=== PATIENT | female | born 1975 | race Caucasian/White ===

== ENCOUNTER 2017-09-15 19:08 | Inpatient (IN) | payer MEDICAID ==
[~2017-09-15] VITALS: Ht 157.5 cm; Wt 146.5 kg
[2017-09-15 19:13] VITALS: BP 134/87
--- NOTE | 2017-09-15 19:13 | NUR ---
42 Y/O F BIBA W/C/O R LOWER ABD PAIN, N/V THAT STARTED 45 MINUTES AGO. MED HX BELLSPALSY. ER MADE AWARE.
[2017-09-15] MEDS ORDERED: NACL 0.9% 1,000 ML IV ONE (19:47)
[2017-09-15] MEDS ORDERED: MORPHINE SULFATE 4 MG/ML SYR IVP ONE (19:50)
[2017-09-15] MEDS ORDERED: ONDANSETRON 4 MG/2 ML VIAL IVP ONE (19:50)
--- NOTE | 2017-09-15 20:09 | NUR ---
PT RESTING IN BED ON CRADIAC MONITOR, NO S/S OF DISTRESS NOTED. FAMILY AT BEDSIDE.
[2017-09-15] MEDS ORDERED: fentaNYL 0.05 MG/ML VIAL IVP ONE (20:10)
[2017-09-15 20:31] LABS: BASOPHILS # (AUTO) 0.1 K/uL (0.00-0.22); BASOPHILS % (AUTO) 0.7 % (0.0-2.0); EOSINOPHILS # (AUTO) 0.1 K/uL (0-0.4); EOSINOPHILS % (AUTO) 1.6 % (0.0-4.0); HEMATOCRIT 29.2 % (36-48); HEMOGLOBIN 8.8 g/dL (12.0-16.0); LYMPHOCYTES % (AUTO) 22.6 % (20.5-51.1); MEAN CORPUSCULAR HEMOGLOBIN 19 pg (27-31); MEAN CORPUSCULAR HGB CONC 30 g/dL (33-37); MEAN CORPUSCULAR VOLUME 61.9 fL (80-94); MONOCYTES # (AUTO) 0.6 K/uL (0.8-1.0); MONOCYTES % (AUTO) 7.1 % (1.7-9.3); NEUTROPHILS # (AUTO) 5.9 K/uL (1.8-7.7); PLATELET COUNT (AUTO) 383 K/uL (140-450); RED BLOOD CELL COUNT(AUTO) 4.71 MIL/uL (4.20-5.40); RED CELL DISTRIBUTION WIDTH 19.5 % (11.6-13.7); WHITE BLOOD COUNT (AUTO) 8.7 K/uL (4.8-10.8)
[2017-09-15 20:47] LABS: ANION GAP 9.7 (8-16); CREATININE 0.8 mg/dL (0.6-1.3); POTASSIUM 4.7 mmol/L (3.5-5.1)
[2017-09-15 20:53] LABS: ALBUMIN 3.1 g/dL (3.4-5.0); TOTAL BILIRUBIN 0.2 mg/dL (0.0-1.0)
[2017-09-15 21:18] LABS: APPEARANCE,URINE CLOUDY (CLEAR); BILIRUBIN,URINE NEGATIVE (NEGATIVE); BLOOD, URINE 3+ (NEGATIVE); COLOR,URINE YELLOW (YELLOW); LEUKOCYTE ESTERASE ,URINE 1+ (NEGATIVE); NITRITE, URINE NEGATIVE (NEGATIVE); PH,URINE 7.5 (5.0-9.0); UGLUCOSE 2+ (NEGATIVE)
--- NOTE | 2017-09-15 21:31 | NUR ---
PT RESTING IN BED, STATES PAIN HAS IMPROVED, AWATING FOR CT. WILL CONT TO MONITOR.
[2017-09-15 21:34] LABS: RBC,URINE TOO NUMEROUS TO COUN /HPF (0-5)
[2017-09-15 21:35] LABS: WBC,URINE 16-25 (MOD) /HPF (0-5)
--- NOTE | 2017-09-15 21:37 | NUR ---
PT TAKEN FOR CT
--- NOTE | 2017-09-15 21:54 | NUR ---
PT BACK FROM CT SCAN.
--- NOTE | 2017-09-15 23:22 | NUR ---
PT RESTING IN BED, VSS. NO S/S OF DISTRESS NOTED AT THE MOMENT.
[2017-09-16] MEDS ORDERED: cefTRIAXone 1,000 MG VIAL ONE (00:03)
[2017-09-16] MEDS ORDERED: NACL 0.9% 2,000 ML IV ONE (00:20)
--- NOTE | 2017-09-16 00:21 | NUR ---
UNABLE TO INSERT NG TUBE. ATTEMPTED X3 BUT PT STATES SHE CANT DO IT. PT REFUSED TO CONTINUE. ER MADE AWARE.
[2017-09-16] MEDS: NACL 0.9% 1,000 ML IV SCH ×4 (00:38→20:38)
[2017-09-16] MEDS ORDERED: MORPHINE SULFATE 4 MG/ML SYR IVP PRN (00:40)
[2017-09-16] MEDS ORDERED: ONDANSETRON 4 MG/2 ML VIAL IM/IVP PRN (00:40)
[2017-09-16] MEDS ORDERED: DOCUSATE SODIUM 100 MG GELCAP PO PRN (00:40)
--- NOTE | 2017-09-16 00:50 | NUR ---
Patient will be admitted to care of DR MISHRA. Admited to TELEMETRY. Will go to [id number]. Belongings list completed. Report to MAREN BRODERICK AT BEDSIDE.
[2017-09-16 00:55] VITALS: BP 115/56
--- NOTE | 2017-09-16 00:55 | NUR ---
PT ARRIVED ON THE UNIT FROM ER VIA [facility]. REPORT GIVEN AT BEDSIDE FROM MARBELLA ENGEL. PT IN STABLE CONDITION. NO S/S OF DISTRESS NOTED. RR EVEN/UNLABORED, ON RA. IV TO R FA 20G, PATENT AND INTACT, INFUSING WELL. SKIN WARM AND DRY TO TOUCH, COLOR WNL. PT DENIES ANY N/V/D AND PAIN AT THIS TIME. PT AMBULATED FROM [facility] TO BED WITH STEADY GAIT. INITIAL ASSESSMENT COMPLETED, PLAN OF CARE DISCUSSED WITH PT, VERBALIZED UNDERSTANDING. ALL SAFETY PRECAUTIONS MET, CALL LIGHT WITHIN REACH, WILL CONTINUE TO MONITOR
[2017-09-16 01:10] LABS: PROTHROMBIN TIME 9.9 secs (10.8-13.4)
--- NOTE | 2017-09-16 01:10 | NUR ---
DE. CARRASQUILLO IN TO SEE AND PT DISCUSS PLAN OF CARE
[2017-09-16 01:19] LABS: FREE T4 (FREE THYROXINE) 0.9 ng/dL (0.76-1.46); MAGNESIUM 1.6 mg/dL (1.8-2.4); PHOSPHORUS 4.6 mg/dL (2.5-4.9); THYROID STIMULATING HORMONE 1.82 uIU/mL (0.34-3.74)
[2017-09-16 04:00] VITALS: BP 110/54
--- NOTE | 2017-09-16 04:30 | NUR ---
MADE DR. CARRASQUILLO AWARE OF MAG 1.6 AND NEED FOR ACCUCHECKS. WILL CARRY OUT NEW ORDERS
[2017-09-16] MEDS ORDERED: MAGNESIUM OXIDE 400 MG TAB PO ONE (05:15)
[2017-09-16] MEDS: HYDROcodone/APAP 7.5/325 MG 1 TAB PO PRN (05:30)
[2017-09-16] MEDS: BLOOD GLUCOSE MONITORING 1 DEV DEV FS SCH ×2 (05:32→16:43)
[2017-09-16 06:26] LABS: BASOPHILS # (AUTO) 0.1 K/uL (0.00-0.22); BASOPHILS % (AUTO) 1.1 % (0.0-2.0); EOSINOPHILS # (AUTO) 0.3 K/uL (0-0.4); EOSINOPHILS % (AUTO) 3.6 % (0.0-4.0); HEMATOCRIT 29.3 % (36-48); HEMOGLOBIN 8.8 g/dL (12.0-16.0); LYMPHOCYTES # (AUTO) 2.5 K/uL (2.5-16.5); LYMPHOCYTES % (AUTO) 30.1 % (20.5-51.1); MEAN CORPUSCULAR HEMOGLOBIN 19 pg (27-31); MEAN CORPUSCULAR HGB CONC 30 g/dL (33-37); MONOCYTES # (AUTO) 0.5 K/uL (0.8-1.0); MONOCYTES % (AUTO) 5.7 % (1.7-9.3); NEUTROPHILS % (AUTO) 59.5 % (42.2-75.2); PLATELET COUNT (AUTO) 371 K/uL (140-450); RED BLOOD CELL COUNT(AUTO) 4.65 MIL/uL (4.20-5.40); RED CELL DISTRIBUTION WIDTH 18.3 % (11.6-13.7); WHITE BLOOD COUNT (AUTO) 8.4 K/uL (4.8-10.8)
[2017-09-16 06:49] LABS: ANION GAP 10.9 (8-16); CARBON DIOXIDE 30.1 mmol/L (21-32); CREATININE 0.7 mg/dL (0.6-1.3)
[2017-09-16] MEDS ORDERED: LACTOBACILLUS RHAMNOSUS GG 1 EACH CAP PO SCH (07:30)
--- NOTE | 2017-09-16 07:32 | NUR ---
REPORT GIVEN TO DAY NURSE FOR CONTINUITY OF CARE, PT IN STABLE CONDITION.
--- NOTE | 2017-09-16 07:45 | NUR ---
REPORT ENDORSED FROM TETRYL DISSOLVER OPERATOR NURSE. INITIAL ASSESSMENT PERFORMED. PATIENT IN BED WITH EYES CLOSED EASILY WOKEN. DENIES PAIN AT THIS TIME. NO ACUTE DISTRESS NOTED. BOWEL SOUNDS ACTIVE. NO C/O NAUSEA OR VOMITING THIS AM. SKIN INTACT PATIENT WITH LFA 20G WITH NS @150ML/HR. PATIENT NPO THIS AM. DISCUSSED PLAN OF CARE WITH PATIENT AT BEDSIDE. PATIENT VERBALIZED UNDERSTANDING AND AGREEMENT. BOARD UPDATED. CALL LIGHT WITHIN REACH. WILL CONT TO MONITOR.
[2017-09-16 08:00] VITALS: BP 93/58
--- NOTE | 2017-09-16 08:48 | NUR ---
PATIENT HAS BEEN SCREENED AND CATEGORIZED HIGH NUTRITION RISK. PATIENT WILL BE SEEN WITHIN 1-2 DAYS OF ADMISSION. 09/16/17 09/17/[address]
--- NOTE | 2017-09-16 09:46 | NUR ---
PATIENT TAKEN TO RADIOLOGY . PENDING RETURN FOR MAG RIDER ADMINISTRATION.
[2017-09-16] MEDS ORDERED: MAG SULF 2000 MG/WATER PREMIX 50 ML IV SCH (10:00)
--- NOTE | 2017-09-16 10:00 | NUR ---
SPOKE TO DR CHU REGARDING MAGNESIUM ORDER STATED HE WOULD DC ORDER AND WAIT FOR LABS TO BE DRAWN TOMORROW. SINCE SHE RECEIVED ORAL SUPPLEMENT THIS AM.
[2017-09-16] MEDS: ACETAMINOPHEN 325 MG TAB PO PRN (10:07)
[2017-09-16 11:59] VITALS: BP 95/45
[2017-09-16] MEDS: KETOROLAC 30 MG/ML VIAL IM PRN (12:55)
--- NOTE | 2017-09-16 12:58 | NUR ---
MEDICATED PATIENT WITH TORADOL. TOLERATED WELL. PATIENT BEING SEEN BY DR GRIMALDO AT THIS TIME.
--- NOTE | 2017-09-16 15:30 | NUR ---
PATIENT IN BED RESTING WITH EYES CLOSED. NO ACUTE DISTRESS NOTED. WILL MONITOR
[2017-09-16 16:00] VITALS: BP 96/46
--- NOTE | 2017-09-16 17:50 | NUR ---
PATIENT RECEIVED DINNER TRAY AND TOLERATING WELL. PATIENT AWARE THAT SHE WILL BE NPO AFTER MIDNIGHT AGAIN FOR THE PENDING PROCEDURE TOMORROW.
[2017-09-16] MEDS: INSULIN LISPRO SLIDING SCALE 100 UNITS/ML VIAL SUBQ PRN (18:28)
--- NOTE | 2017-09-16 19:17 | NUR ---
ENDORSED REPORT AT BEDSIDE TO ORACLE APPLICATION ARCHITECT NURSE . PATIENT STABLE.
--- NOTE | 2017-09-16 19:18 | NUR ---
RECEIVED PT FROM DAY SHIFT NURSE ROYA-MAREN. PT SLEEPING IN BED. AOX4, ON ROOM AIR WITH LEFT FA #20G, NS 0.9% RUNNING AT 150ML/HR. DISCUSSED PLAN OF CARE AND PT VERBALIZED UNDERSTANDING. WHITE BOARD UPDATED. BED IN LOWEST POSITION, BED BREAKS LOCKED. BED SIDE TABLE AND CALL LIGHT WITHIN REACH. NO S/S OF RESPIRATORY DISTRESS OR DISCOMFORT NOTED AT THIS TIME. WILL CONTINUE TO MONITOR.
[2017-09-16 20:00] VITALS: BP 108/62
--- NOTE | 2017-09-16 22:15 | NUR ---
SCHEDULED MEDICATION GIVEN AND TOLERATED WELL. PT RESTING IN BED. WILL CONTINUE TO MONITOR.
[2017-09-17] VITALS (8 sets, daily range): BP systolic 97–126; BP diastolic 47–83
--- NOTE | 2017-09-17 | NUR ---
ZOSYN 4.5 IV ABT GIVEN ORDER.
--- NOTE | 2017-09-17 | NUR ---
ASSISTED PT TO THE BATHROOM. WHEN PT RETURNED PT C/O PAIN. VITAL SIGNS TAKEN AND TOLERATED WELL. WILL MEDICATE.
[2017-09-17] MEDS: HYDROcodone/APAP 7.5/325 MG 1 TAB PO PRN (00:21)
[2017-09-17] MEDS: NACL 0.9% 1,000 ML IV SCH (01:40)
--- NOTE | 2017-09-17 02:25 | NUR ---
PT CONTINUES TO SLEEP. WILL CONTINUE TO MONITOR.
--- NOTE | 2017-09-17 04:00 | NUR ---
PT CONTINUES TO SLEEP. NO S/S OF RESPIRATORY DISTRESS OR DISCOMFORT NOTED. WILL CONTINUE TO MONITOR.
[2017-09-17] MEDS: BLOOD GLUCOSE MONITORING 1 DEV DEV FS SCH ×2 (05:54→17:29)
[2017-09-17] MEDS: INSULIN LISPRO SLIDING SCALE 100 UNITS/ML VIAL SUBQ PRN ×2 (05:55→17:33)
--- NOTE | 2017-09-17 06:00 | NUR ---
BLOOD GLUCOSE 153. INSULIN GIVEN PER SLIDING SCALE. PT TOLERATED WELL. WILL CONTINUE TO MONITOR.
[2017-09-17 06:19] LABS: BASOPHILS % (AUTO) 0.8 % (0.0-2.0); EOSINOPHILS # (AUTO) 0.3 K/uL (0-0.4); EOSINOPHILS % (AUTO) 5.9 % (0.0-4.0); HEMATOCRIT 26.2 % (36-48); LYMPHOCYTES # (AUTO) 1.8 K/uL (2.5-16.5); LYMPHOCYTES % (AUTO) 31.6 % (20.5-51.1); MEAN CORPUSCULAR HEMOGLOBIN 19 pg (27-31); MEAN CORPUSCULAR HGB CONC 31 g/dL (33-37); MEAN CORPUSCULAR VOLUME 62.7 fL (80-94); MONOCYTES # (AUTO) 0.4 K/uL (0.8-1.0); MONOCYTES % (AUTO) 7.6 % (1.7-9.3); NEUTROPHILS # (AUTO) 3.1 K/uL (1.8-7.7); NEUTROPHILS % (AUTO) 54.1 % (42.2-75.2); PLATELET COUNT (AUTO) 326 K/uL (140-450); RED BLOOD CELL COUNT(AUTO) 4.18 MIL/uL (4.20-5.40); RED CELL DISTRIBUTION WIDTH 19.6 % (11.6-13.7); WHITE BLOOD COUNT (AUTO) 5.8 K/uL (4.8-10.8)
[2017-09-17 06:55] LABS: ANION GAP 8.4 (8-16); CARBON DIOXIDE 30.2 mmol/L (21-32); CREATININE 0.7 mg/dL (0.6-1.3); POTASSIUM 3.6 mmol/L (3.5-5.1)
--- NOTE | 2017-09-17 07:25 | NUR ---
ENDORSED PT CARE TO DAY SHIFT NURSE TAVARES FOR CONTINUITY OF CARE. PT STABLE AT THIS TIME.
--- NOTE | 2017-09-17 07:26 | NUR ---
RECEIVED REPORT FROM NIGHT RN. PATIENT IS AAOX4, NO SIGNS AND SYMPTOMS OF ACUTE DISTRESS NOTED AT THIS TIME. HAS IV TO THE LEFT FA 20G, NS INFUSING AT 150 ML/HR. SITE IS CLEAN DRY PATENT AND INTACT. BED IN LOWEST POSITION, SIDE RAILS UP X2, CALL LIGHT WITHIN REACH.
[2017-09-17 08:18] LABS: MAGNESIUM 1.7 mg/dL (1.8-2.4); PHOSPHORUS 3.3 mg/dL (2.5-4.9)
[2017-09-17] MEDS: LACTOBACILLUS RHAMNOSUS GG 1 EACH CAP PO SCH (09:00)
[2017-09-17] MEDS ORDERED: BUPIVACAINE-MPF 0.25% 30 ML VIAL INJ ONE (11:29)
[2017-09-17] MEDS ORDERED: ceFAZolin 1,000 MG VIAL ONE ×2 (11:34→12:22)
[2017-09-17] MEDS ORDERED: MIDAZOLAM 2 MG/2 ML VIAL ONE (11:48)
[2017-09-17] MEDS ORDERED: MEPERIDINE 50 MG/ML SYR ONE (11:48)
[2017-09-17] MEDS ORDERED: fentaNYL 0.05 MG/ML VIAL ONE (11:48)
[2017-09-17] MEDS ORDERED: BLOOD GLUCOSE MONITORING 1 DEV DEV FS ONE (12:40)
[2017-09-17] MEDS ORDERED: ONDANSETRON 4 MG/2 ML VIAL IVP PRN (12:40)
[2017-09-17] MEDS ORDERED: MEPERIDINE 25 MG/ML SYR IVP PRN (12:40)
[2017-09-17] MEDS ORDERED: diphenhydrAMINE 50 MG/ML VIAL IVP PRN (12:40)
[2017-09-17] MEDS ORDERED: HYDROmorphone 1 MG/ML AMP IVP PRN ×2 (12:40→15:20)
--- NOTE | 2017-09-17 13:30 | NUR ---
09/17/17 RD INITIAL ASSESSMENT COMPLETED PLEASE REFER TO NUTRITION ASSESSMENT UNDER CARE ACTIVITY FOR ESTIMATED NUTRITIONAL NEEDS. RD RECOMMENDATIONS: 1. CONTINUE NPO MEDICALLY APPROPRIATE. 2. IF/WHEN PT IS MEDICALLY STABLE TO BEGIN NUTRITION, CONSIDER CLEAR LIQUID DIET. THEN ADVANCE TOLERATED TO LOW CHOLESTEROL/LOW FAT DIET DUE TO PT WITH ELEVATED LIPID PANELS. 3. RD WILL F/U 2-3 DAYS; HIGH RISK. ALTON KOVACS, RD
--- NOTE | 2017-09-17 15:15 | NUR ---
RECEIVED REPORT FROM SURGICAL TEAM. PT STATES SHE IS IN PAIN, NAUSEOUS AND CRYING. PT'S SISTER IS HERE AND DR GRIMALDO. IS GOING TO SPEAK WITH HER ABOUT PROCEDURE.
--- NOTE | 2017-09-17 15:15 | NUR ---
GAVE REPORT TO MARGARITA IN ICU.
[2017-09-17] MEDS ORDERED: ACETAMINOPHEN 325 MG TAB PO PRN (15:20)
[2017-09-17] MEDS ORDERED: HYDROmorphone PFS 2 MG/ML SYR IVP PRN (15:20)
[2017-09-17] MEDS ORDERED: HYDROcodone/APAP 5/325 MG 1 TAB TAB PO PRN (15:20)
--- NOTE | 2017-09-17 15:40 | NUR ---
DR GRIMALDO CALLED; RECEIVED ORDERS TO D/C ALL ANTIBIOTICS AND ORDER ZOSYN. ORDER PLACED Addendum: 09/17/17 at 1937 by Mariana Fuentes RN WRONG TIME; 1729 WAS THE TIME
[2017-09-17] MEDS: MORPHINE SULFATE 4 MG/ML SYR IV PRN ×2 (15:58→21:25)
--- NOTE | 2017-09-17 16:05 | NUR ---
DR GRIMALDO TOLD ME TO HOLD SUBQ HEPARIN FOR NOW AND PUT ABD BINDER ON PT.
--- NOTE | 2017-09-17 16:10 | NUR ---
PT REQUESTS TO NOT HAVE ABD. BINDER PLACED SHE WAS IN SO MUCH PAIN. ABD. BINDER AT BEDSIDE.
--- NOTE | 2017-09-17 17:01 | NUR ---
PT IS RESTING, FLACC 0. MEDICATION AND POSITION CHANGED SEEMED TO HELP PT WITH PAIN.
--- NOTE | 2017-09-17 17:35 | NUR ---
PT UNABLE TO PERFORM INTENSIVE SPIROMETER AT THIS TIME. WILL ENDORSE TO NEXT SHIFT.
--- NOTE | 2017-09-17 17:40 | NUR ---
PTS AT BEDSIDE. PT SLEEPING. FLACC 0
--- NOTE | 2017-09-17 17:50 | NUR ---
CALLED AFTER HOURS PHARM ABOUT ZOSYN.
[2017-09-17] MEDS ORDERED: PIPERACILLIN/TAZOBACTAM 4.5 GM in DEXTROSE 5% 100 ML IV SCH (18:00)
--- NOTE | 2017-09-17 18:45 | NUR ---
CALLED TO FOLLOW UP WITH PHARM ABOUT ZOSYN; MEDICATION ON WAY.
--- NOTE | 2017-09-17 19:15 | NUR ---
GAVE REPORT TO NIGHT RN FOR CONTINUATION OF CARE
--- NOTE | 2017-09-17 19:27 | NUR ---
GAVE REPORT TO NIGHT RN FOR CONTINUATION OF CARE Addendum: 09/17/17 at 1934 by Mariana Fuentes RN WRONG PATIENT.
--- NOTE | 2017-09-17 19:30 | NUR ---
REPORT GIVEN BY SENG ENGEL AM SHIFT. PT IS AWAKE AND ALERT X4 AT THIS TIME.PT ABLE TO ANSWER QUESTION WELL,DENIES ANY PAIN AT THIS TIME.CONT ON O2 VIA N/C AT 3 LPM TOLERATING WELL WITH CLEAR BREATH SOUND NOTED. SR ON MONITOR.IV SITE TO HAND NO 20 GAUGE AND LEFT FOREARM NO 20 GAUGE.IV RL AT 100 CC/HR. PT IS S/P REPAIR OF INCARCERATED INCISIONAL/VENTRAL HERNIA. INCISION SITE ON MID ABD COVER WITH DRY DRESSING, TAHIRA DRAIN INTACT WITH BRIGHT RED BLOOD DRAINAGE. PER REPORT NO CHANGE DRESSING YET AT THIS POINT PER DR. GRIMALDO. ALSO PER REPORT TO HOLD HEPARIN DOSE PER D/T S/P SURGERY.SKIN WARM TO TOUCH. F/C IN PLACE WITH HEMATURIA NOTED .GENTLE CARE GIVEN .KEPT CLEAN AND DRY.CALL LIGHT IN REACH. AT BED SIDE.
--- NOTE | 2017-09-17 19:50 | NUR ---
COME TO SEE PT AND SAYING GOOD PROGRESS,NO OPEN THE DRESSING AT THIS TIME PER MD. CONT TO MONITOR CLOSELY,
[2017-09-17] MEDS ORDERED: PIPERACILLIN/TAZOBACTAM 2.25 GM VIAL IV ONE ×2 (20:31→20:41)
[2017-09-17] MEDS: PIPERACILLIN/TAZOBACTAM 4.5 GM in DEXTROSE 5% 100 ML IV SCH (20:48)
--- NOTE | 2017-09-17 20:50 | NUR ---
HEPARIN NOT GIVEN AT THIS TIME, PER AM REPORT TO HOLD PER D/T RECENT POST SURGERY AND BLOOD IN URINE AND TAHIRA DRAIN BRIGHT RED COLOR.
[2017-09-17] MEDS: LACTATED RINGERS 1,000 ML IV SCH (20:59)
--- NOTE | 2017-09-17 21:30 | NUR ---
REPOSITION PT FOR COMFORT. APPLY ABD BINDER TO ABD .PT ABLE TO PULL HER ABD DURING APPLYING THE ABD BINDER,
--- NOTE | 2017-09-17 21:59 | NUR ---
IVF RL STILL RUNNING ABOUT 700 CC ON THE BAG.
--- NOTE | 2017-09-17 22:00 | NUR ---
PT WAS C/O PAIN 6/10 PRN MORPHINE GIVEN ORDER FOR PAIN AND TOLERATING WELL, PT SLEEP WELL AFTER 30 MINUTES MED WAS GIVEN.GENTLE CARE GIVEN. KEPT CLEAN AND DRY.
[2017-09-18] VITALS (7 sets, daily range): BP systolic 97–136; BP diastolic 63–85
--- NOTE | 2017-09-18 00:30 | NUR ---
DR. GRIMALDO CALLED UP DATE PT STATUS, MADE AWARE THE RECENT V/S BP 132/73,P 85, SPO2 99%, ALSO MADE AWARE STILL HAVE HEMATURIA AND TAHIRA DRAIN ABOUT 70 CC BRIGHT RED. PER MD TO CONT TO MONITOR.
[2017-09-18] MEDS: LACTATED RINGERS 1,000 ML IV SCH (02:00)
[2017-09-18] MEDS: PIPERACILLIN/TAZOBACTAM 4.5 GM in DEXTROSE 5% 100 ML IV SCH ×4 (02:03→20:35)
--- NOTE | 2017-09-18 02:30 | NUR ---
PT WAS C/O PAIN ON ABDOMEN REPOSITION FOR COMFORT. PRN PAIN MED DILAUDID GIVEN ORDER AND TOLERATING WEEK
--- NOTE | 2017-09-18 03:10 | NUR ---
AM IV ABT ZOSYN 4.5 GR GIVEN TOLERATING WELL
--- NOTE | 2017-09-18 04:35 | NUR ---
AM CARE GIVEN. SPONGE BATH AND F/C CARE. PT ABLE TO HOLD ON SIDE RAIL DURING CARE. TAHIRA DRAIN ABOUT 80 CC BRIGHT RED COLOR. URINE NO MORE HEMATURIA ABOUT 1000 CC CLOUDY URINE.
[2017-09-18 05:42] LABS: BASOPHILS # (AUTO) 0.1 K/uL (0.00-0.22); BASOPHILS % (AUTO) 0.5 % (0.0-2.0); EOSINOPHILS % (AUTO) 0.2 % (0.0-4.0); HEMATOCRIT 26.8 % (36-48); HEMOGLOBIN 7.9 g/dL (12.0-16.0); LYMPHOCYTES % (AUTO) 16.4 % (20.5-51.1); MEAN CORPUSCULAR HEMOGLOBIN 19 pg (27-31); MEAN CORPUSCULAR HGB CONC 30 g/dL (33-37); MEAN CORPUSCULAR VOLUME 62.3 fL (80-94); MONOCYTES % (AUTO) 8.4 % (1.7-9.3); NEUTROPHILS % (AUTO) 74.5 % (42.2-75.2); PLATELET COUNT (AUTO) 383 K/uL (140-450); RED CELL DISTRIBUTION WIDTH 19.2 % (11.6-13.7); WHITE BLOOD COUNT (AUTO) 12.1 K/uL (4.8-10.8)
--- NOTE | 2017-09-18 05:52 | NUR ---
NO S/S OF DISTRESS, NO C/O PAIN A THIS TIME.
--- NOTE | 2017-09-18 06:00 | NUR ---
PER PT CAN EAR CLEAR DIET TO DAY.
[2017-09-18 06:16] LABS: ANION GAP 6.8 (8-16); CARBON DIOXIDE 32.6 mmol/L (21-32); CREATININE 0.9 mg/dL (0.6-1.3); POTASSIUM 4.4 mmol/L (3.5-5.1)
[2017-09-18 06:22] LABS: MAGNESIUM 1.7 mg/dL (1.8-2.4); PHOSPHORUS 3.3 mg/dL (2.5-4.9)
[2017-09-18] MEDS: BLOOD GLUCOSE MONITORING 1 DEV DEV FS SCH ×2 (06:34→17:08)
[2017-09-18] MEDS: INSULIN LISPRO SLIDING SCALE 100 UNITS/ML VIAL SUBQ PRN ×2 (06:35→17:48)
--- NOTE | 2017-09-18 07:18 | NUR ---
REPORT GIVEN TO ABBY ENGEL AM SHIFT. PT IS SLEEPING AT THIS TIME.MADE AWARE PER DR. ALEX THAT VT MAY EAT CLEAR DIET.
--- NOTE | 2017-09-18 07:18 | NUR ---
RECEIVED REPORT FROM NIGHT RN. PT IS SLEEPING, FLACC 0. SHE HAS COLLINS IN PLACE, CLOUDY YELLOW URINE IN BAG. PT HAS ABDOMINAL BINDER ON. PT MOVES EXTREMITIES. PT IS LYING FLAT, BED LOCKED, ALARM ON AND CALL LIGHT WITHIN REACH. PTS LUNGS ARE CLEAR BILATERALLY, DIMINISHED. S1S2 HEARD. BOWEL SOUNDS PRESENT IN ALL 4 QUADRANTS. PT HAS AN ABD. DRESSING IN PLACE, DRY AND INTACT; NO DRAINAGE PRESENT. PT'S BED IS IN THE LOWEST POSITION, LOCKED, ALARM ON. CALL LIGHT WITHIN REACH. WILL CLOSELY MONITOR.
[2017-09-18] MEDS: MORPHINE SULFATE 4 MG/ML SYR IV PRN ×2 (07:53→18:30)
[2017-09-18] MEDS ORDERED: MAG SULF 2000 MG/WATER PREMIX 100 ML IV SCH (08:12)
[2017-09-18] MEDS: NACL 0.9% 1,000 ML IV SCH ×3 (08:15→22:30)
--- NOTE | 2017-09-18 08:29 | NUR ---
SPOKE WITH PT REGARDING HER BREATHING. PT STATES SINCE SHE RECEIVED PAIN MEDS HER SOB HAS SUBSIDED. SPO2 ON ROOM AIR 94%. WILL CONTINUE TO MONITOR.
--- NOTE | 2017-09-18 08:30 | NUR ---
SPOKE WITH REGARDING BIPAP. PHYSICIAN STATES HE WANTS PT ON FOR NOCTURNAL AND WILL CLARIFY ORDER.
--- NOTE | 2017-09-18 09:00 | NUR ---
PAGED DR. GRIMALDO IN REGARDS TO PT'S HEPARIN HE REQUESTED TO BE HELD YESTERDAY TO ASK ABOUT RESUMING.
[2017-09-18] MEDS: CALCIUM CARB/VIT-D 500 MG/200 IU 1 TAB PO SCH (09:22)
[2017-09-18] MEDS: LACTOBACILLUS RHAMNOSUS GG 1 EACH CAP PO SCH (09:22)
[2017-09-18] MEDS: ATORVASTATIN 20 MG TAB PO SCH (09:23)
[2017-09-18] MEDS: HYDROcodone/APAP 7.5/325 MG 1 TAB PO PRN ×2 (11:44→15:51)
--- NOTE | 2017-09-18 13:17 | NUR ---
PT AWAKE, STATES HER PAIN IS MUCH BETTER. EATING LUNCH (CLEAR LIQUID DIET). WILL CLOSELY MONITOR.
--- NOTE | 2017-09-18 14:18 | NUR ---
PT RESTING COMFORTABLY. FLACC 0. BED IN LOWEST POSITION, HEAD OF BED RAISED. REPOSITIONED BINDER, COLLINS CARE AND BED BATH. WILL CLOSELY MONITOR.
--- NOTE | 2017-09-18 15:17 | NUR ---
TRANSFERRED PT TO MED SURG, GAVE REPORT TO PATRICIA ENGEL, FOR CONTINUATION OF CARE.
--- NOTE | 2017-09-18 15:17 | NUR ---
RECEIVED PATIENT FROM RATE MANAGER ABBY. PATIENT IS AAOX4, NO SIGNS AND SYMPTOMS OF ACUTE DISTRESS NOTED AT THIS TIME. PATIENT HAS IV TO THE LEFT FOREARM 20G SALINE LOCK, LEFT WRIST 20G INFUSING NS AT 100 ML/HR. SITE IS CLEAN, DRY, PATENT AND INTACT. HAS TAHIRA DRAIN FROM STATUS POST INCARCERATED HERNIA REPAIR. SEROSANGUINOUS FLUID NOTED INSIDE. COLLINS CATHETER DRAINING TO GRAVITY. SCD ON. BED IN LOWEST POSITION, SIDE RAILS UP X2, CALL LIGHT WITHIN REACH.
--- NOTE | 2017-09-18 19:28 | NUR ---
RECEIVED PATIENT LYING ASLEEP IN BED WITH IV AND FC ON. CALL LIGHTR WITHIN REACH. BED IN LOW POSITION. EXPLAINED TO PATIENT THE PLAN OF CARE AND ALL NEEDS ATTENDED. WILL CONTINUE TO MONITOR
--- NOTE | 2017-09-18 19:28 | NUR ---
ENDORSED PATIENT TO TELEVISION PARTS TESTER RN FOR CONTINUITY OF CARE. PATIENT IN STABLE CONDITION.
--- NOTE | 2017-09-18 19:59 | NUR ---
I TALK WITH PT ABOUT NOC BIPAP, BUT SHE WILL CALL IF SHE WILL BE SOB OR NEEDED, AT THIS TIME, SAT IN ROOM AIR 94%
[2017-09-18] MEDS: KETOROLAC 30 MG/ML VIAL IM PRN ×2 (20:21→21:02)
--- NOTE | 2017-09-18 22:30 | NUR ---
PT STATED SHE DOES NOT WANT TO BE ON BIPAP
--- NOTE | 2017-09-18 22:58 | NUR ---
SEEN PATIENT ASLEEP IN BED . NO S/S OF DISTRESS NOTED AT THIS TIME. WILL CONTINUE TO MONITOR.
[2017-09-19] VITALS: BP 132/66
--- NOTE | 2017-09-19 00:23 | NUR ---
RECHECK PATIENT SEEN ASLEEP IN BED WITH BLANKET IN COMFORTABLE POSITION. BED IN LOW POSITION. CALL LIGHT WITHIN REACH. NO S/ S OF DISTRESS NOTED AT THIS TIME. WILL CONTINUE FREQUENT ROUNDING.
[2017-09-19] MEDS: HYDROcodone/APAP 7.5/325 MG 1 TAB PO PRN ×2 (02:23→09:08)
[2017-09-19] MEDS: PIPERACILLIN/TAZOBACTAM 4.5 GM in DEXTROSE 5% 100 ML IV SCH ×4 (02:25→20:48)
--- NOTE | 2017-09-19 02:53 | NUR ---
SEEN PATIENT ASLEEP IN BED IN COMFORTABLE POSITION. NO S/S OF DISTRESS NOTED AT THIS TIME .WILL CONTINUE TO MONITOR.
[2017-09-19 06:06] LABS: BASOPHILS # (AUTO) 0.1 K/uL (0.00-0.22); BASOPHILS % (AUTO) 0.7 % (0.0-2.0); EOSINOPHILS # (AUTO) 0.3 K/uL (0-0.4); EOSINOPHILS % (AUTO) 2.9 % (0.0-4.0); HEMATOCRIT 24.2 % (36-48); HEMOGLOBIN 7.4 g/dL (12.0-16.0); LYMPHOCYTES # (AUTO) 2.7 K/uL (2.5-16.5); LYMPHOCYTES % (AUTO) 26.3 % (20.5-51.1); MEAN CORPUSCULAR HEMOGLOBIN 19 pg (27-31); MEAN CORPUSCULAR HGB CONC 30 g/dL (33-37); MEAN CORPUSCULAR VOLUME 62.2 fL (80-94); MONOCYTES # (AUTO) 0.8 K/uL (0.8-1.0); MONOCYTES % (AUTO) 8.1 % (1.7-9.3); NEUTROPHILS # (AUTO) 6.3 K/uL (1.8-7.7); PLATELET COUNT (AUTO) 375 K/uL (140-450); RED CELL DISTRIBUTION WIDTH 19.4 % (11.6-13.7); WHITE BLOOD COUNT (AUTO) 10.2 K/uL (4.8-10.8)
[2017-09-19] MEDS: INSULIN LISPRO SLIDING SCALE 100 UNITS/ML VIAL SUBQ PRN ×2 (06:23→17:52)
[2017-09-19 06:39] LABS: ANION GAP 12.8 (8-16); CARBON DIOXIDE 27.5 mmol/L (21-32); CREATININE 0.8 mg/dL (0.6-1.3); POTASSIUM 4.3 mmol/L (3.5-5.1)
[2017-09-19 06:44] LABS: MAGNESIUM 1.9 mg/dL (1.8-2.4); PHOSPHORUS 2.7 mg/dL (2.5-4.9)
[2017-09-19] MEDS: BLOOD GLUCOSE MONITORING 1 DEV DEV FS SCH ×2 (06:49→16:30)
--- NOTE | 2017-09-19 07:15 | NUR ---
ENDORSED PATIENT TO AM SHIFT FOR CONTINUITY OF CARE. PATIENT IN STABLE CONDITION.
--- NOTE | 2017-09-19 07:27 | NUR ---
RECEIVED REPORT FROM NIGHT NURSE. PT IN STABLE CONDITION. DRESSING WAS OBSERVED. TAHIRA OBSERVED. IV INTACT. SKIN INTACT. BED LOCKED IN LOW POSITION. CALL JOSEPH WITHIN REACH. WILL CONTINUE TO MONITOR.
--- NOTE | 2017-09-19 07:54 | NUR ---
RECEIVED PATIENT ON ROOM AIR, O2 SAT 94%. NO RESPIRATORY DISTRESS NOTED AT THIS TIME. WILL CONTINUE TO MONITOR.
[2017-09-19 08:00] VITALS: BP 122/72
[2017-09-19] MEDS: LACTOBACILLUS RHAMNOSUS GG 1 EACH CAP PO SCH (09:08)
[2017-09-19] MEDS: CALCIUM CARB/VIT-D 500 MG/200 IU 1 TAB PO SCH (09:09)
[2017-09-19] MEDS: ATORVASTATIN 20 MG TAB PO SCH (09:09)
[2017-09-19] MEDS: NACL 0.9% 1,000 ML IV SCH ×2 (09:30→21:34)
--- NOTE | 2017-09-19 09:34 | NUR ---
COLLINS TAKEN OUT. BALLOON DEFLATED 10ML WATER REMOVED. CATHETER TIP INTACT. AM MEDS GIVEN. PT AWARE OF PLAN FOR AMBULATION WITH PHYSICAL THERAPY. PAIN MEDICINE GIVEN. PAIN ASSESSMENT DONE. TAHIRA DRAINED 65ML SEROSANGUINOUS DRAINAGE. PT TOLERATED WELL. WILL CONTINUE TO MONITOR.
[2017-09-19] MEDS ORDERED: KETOROLAC 30 MG/ML VIAL IVP SCH (11:00)
--- NOTE | 2017-09-19 13:00 | NUR ---
PT SLEEPING. TAHIRA DRAINING PROPERLY. IV SITE INTACT. PT NOT IN ACUTE DISTRESS. WILL CONTINUE TO MONITOR.
--- NOTE | 2017-09-19 14:08 | NUR ---
TAHIRA DRAINAGE WAS DRAINED, 75ML SEROSANGUINEOUS FLUID WAS REMOVED. PATIENT TOLERATED WELL. WILL INFORM PRIMARY NURSE BASILIO.
[2017-09-19 16:00] VITALS: BP 142/85
--- NOTE | 2017-09-19 17:00 | NUR ---
TAHIRA DRAINED FOR 40ML OF SEROSANGUINOUS FLUID.
--- NOTE | 2017-09-19 17:30 | NUR ---
PT STATES SHE HAS A HEADACHE. TYLENOL GIVEN. PT TOLERATED WELL. PT SAT UP IN BED. NOT IN ANY ACUTE DISTRESS AND VS STABLE. WILL CONTINUE TO MONITOR.
[2017-09-19] MEDS: ACETAMINOPHEN 325 MG TAB PO PRN (17:35)
[2017-09-19] MEDS: HYDROcodone/APAP 10/325 MG 1 TAB TAB PO PRN (18:51)
--- NOTE | 2017-09-19 19:43 | NUR ---
PT ENDORSED TO NIGHT RN. PT IN STABLE CONDITION.
--- NOTE | 2017-09-19 19:44 | NUR ---
PATIENT REPORT RECEIVED FROM MORNING NURSE AT BEDSIDE. PATIENT IS CURRENTLY ASLEEP, BUT EASY TO AROUSE. NO SIGNS AND SYMPTOMS OF DISTRESS NOTED, BREATHING EVEN AND UNLABORED. IV SITE NOTED ON LEFT ARM, IVF INFUSING WELL. BED IN LOWEST POSITION, SIDE RAILS UP AND CALL LIGHT WITHIN REACH. WILL CONTINUE TO MONITOR.
[2017-09-19] MEDS: DOCUSATE SODIUM 100 MG GELCAP PO SCH (20:56)
--- NOTE | 2017-09-19 21:11 | NUR ---
PATIENT REFUSES TO WEAR BIPAP AT THIS TIME. ENCOURAGED PT TO WEAR IT. PATIENT SAID IF SHE FEELS SOB SHE WILL WEAR IT.
--- NOTE | 2017-09-19 23:33 | NUR ---
CHECKED ON PATIENT. PATIENT IS ASLEEP. NO SIGNS AND SYMPTOMS OF DISTRESS NOTED. BREATHING EVEN AND UNLABORED. WILL CONTINUE TO MONITOR.
[2017-09-20] VITALS: BP 142/73
[2017-09-20] MEDS: PIPERACILLIN/TAZOBACTAM 4.5 GM in DEXTROSE 5% 100 ML IV SCH ×3 (02:21→15:16)
[2017-09-20] MEDS: HYDROcodone/APAP 10/325 MG 1 TAB TAB PO PRN ×3 (02:27→15:23)
[2017-09-20] MEDS: BLOOD GLUCOSE MONITORING 1 DEV DEV FS SCH (06:06)
[2017-09-20] MEDS: INSULIN LISPRO SLIDING SCALE 100 UNITS/ML VIAL SUBQ PRN (06:13)
[2017-09-20 07:00] LABS: BASOPHILS # (AUTO) 0.1 K/uL (0.00-0.22); BASOPHILS % (AUTO) 0.6 % (0.0-2.0); EOSINOPHILS # (AUTO) 0.5 K/uL (0-0.4); EOSINOPHILS % (AUTO) 5.1 % (0.0-4.0); HEMATOCRIT 24.3 % (36-48); HEMOGLOBIN 7.3 g/dL (12.0-16.0); LYMPHOCYTES # (AUTO) 2.6 K/uL (2.5-16.5); LYMPHOCYTES % (AUTO) 29.5 % (20.5-51.1); MEAN CORPUSCULAR HEMOGLOBIN 19 pg (27-31); MEAN CORPUSCULAR HGB CONC 30 g/dL (33-37); MEAN CORPUSCULAR VOLUME 62.2 fL (80-94); MONOCYTES # (AUTO) 0.6 K/uL (0.8-1.0); MONOCYTES % (AUTO) 7.1 % (1.7-9.3); NEUTROPHILS # (AUTO) 5.1 K/uL (1.8-7.7); NEUTROPHILS % (AUTO) 57.7 % (42.2-75.2); PLATELET COUNT (AUTO) 363 K/uL (140-450); RED BLOOD CELL COUNT(AUTO) 3.91 MIL/uL (4.20-5.40); RED CELL DISTRIBUTION WIDTH 19.3 % (11.6-13.7); WHITE BLOOD COUNT (AUTO) 8.8 K/uL (4.8-10.8)
[2017-09-20 07:10] LABS: ANION GAP 9.9 (8-16); CARBON DIOXIDE 29.5 mmol/L (21-32); CREATININE 0.7 mg/dL (0.6-1.3); POTASSIUM 4.4 mmol/L (3.5-5.1)
--- NOTE | 2017-09-20 07:20 | NUR ---
PATIENT REPORT GIVEN TO MORNING NURSE AT BEDSIDE. PATIENT IS IN STABLE CONDITION
[2017-09-20 07:24] LABS: MAGNESIUM 1.6 mg/dL (1.8-2.4); PHOSPHORUS 3.2 mg/dL (2.5-4.9)
--- NOTE | 2017-09-20 07:30 | NUR ---
PATIENT AWAKE, ALERT. RESPIRATION EVEN, UNLABOR ON ROOM AIR. SKIN DRY AND WARM. IV PATENT AND INTACT. DRESSING CLEAN AND DRY. 30ML SEROSANGUINEOUS FLUID WAS DRAINED FROM TAHIRA DRAIN. VS IS STABLE. COMPLAINED OF INCISIONAL PAIN 6/10, WILL MEDICATE PER ORDER. PLAN OF CARE WAS DISCUSSED WITH PATIENT. BED AT LOW POSITION, SIDE RAILS UP. CALL LIGHT WITHIN REACH.
[2017-09-20 08:00] VITALS: BP 118/73
[2017-09-20] MEDS: LACTOBACILLUS RHAMNOSUS GG 1 EACH CAP PO SCH (08:30)
[2017-09-20] MEDS: ATORVASTATIN 20 MG TAB PO SCH (08:30)
[2017-09-20] MEDS: CALCIUM CARB/VIT-D 500 MG/200 IU 1 TAB PO SCH (08:31)
[2017-09-20] MEDS: DOCUSATE SODIUM 100 MG GELCAP PO SCH (08:40)
[2017-09-20] MEDS: NACL 0.9% 1,000 ML IV SCH (09:51)
--- NOTE | 2017-09-20 11:49 | NUR ---
PATIENT IS SLEEPING COMFORTABLY. RESPIRATION EVEN, UNLABOR ON ROOM AIR. NO DISTRESS NOTED AT THIS TIME.
--- NOTE | 2017-09-20 12:18 | NUR ---
DR. LYNCH WAS MADE AWARE OF PATIENT'S MG 1.6, AWAITING FOR NEW ORDER.
--- NOTE | 2017-09-20 12:42 | NUR ---
P.T. NOTES D/C FROM P.T. AFTER TX; NURSING TO AMBULATE PATIENT AD TAE Addendum: 09/20/17 at 1243 by Melva Jung PT Amended: Links added.
[2017-09-20] MEDS ORDERED: MAGNESIUM OXIDE 400 MG TAB PO SCH (13:00)
[2017-09-20] MEDS ORDERED: MAG SULF 2000 MG/WATER PREMIX 50 ML IV SCH (13:00)
--- NOTE | 2017-09-20 14:09 | NUR ---
WOUND DRESSING WAS CHANGED, 70ML SEROSANGUINEOUS WAS DRAINED FROM TAHIRA. INCISION DRY AND CLEAN. PATIENT TOLERATED WELL. WOUND PICTURE WAS TAKEN.
[2017-09-20] MEDS ORDERED: LEVO750T2 PO (15:15)
[2017-09-20] MEDS ORDERED: LACT10CA PO (15:15)
[2017-09-20] MEDS ORDERED: ATOR20TA40 PO (15:15)
[2017-09-20] MEDS ORDERED: DOCU-299 PO (15:15)
[2017-09-20] MEDS ORDERED: CALC-846 PO (15:15)
--- NOTE | 2017-09-20 15:22 | NUR ---
09/20/17 RD FOLLOW UP COMPLETED PLEASE REFER TO NUTRITION ASSESSMENT UNDER CARE ACTIVITY FOR ESTIMATED NUTRITIONAL NEEDS. 1. CONTINUE CCHO 60 GM DIET TOLERATED 2. RECOMMEND PLACING PT ON CARDIAC DIET, IN ADDITION TO CCHO 60 GM. 3. PROVIDE NUTRITION EDUCATION 4. RD WILL F/U 2-3 DAYS; HIGH RISK. BIMAL PATTERSON RD
--- NOTE | 2017-09-20 15:30 | NUR ---
PATIENT AWAKE, ALERT. RESPIRATION EVEN, UNLABOR ON ROOM AIR. COMPLAINED OF PAIN 6/10 ON INCISION, WILL MEDICATE PER ORDER. CALL LIGHT WITHIN REACH
[2017-09-20 15:45] VITALS: BP 130/73
--- NOTE | 2017-09-20 16:30 | NUR ---
DISCHARGE INSTRUCTION AND PRESCRIPTION WERE GIVEN AND EXPLAINED TO PATIENT. PATIENT VERBALIZED UNDERSTANDING. IVS WERE REMOVED, CATHETER INTACT, NO ACTIVE BLEEDING SEEN, PATIENT TOLERATED WELL. ID BAND WAS REMOVED. WOUND CARE SUPPLIES WERE PROVIDED TO THE PATIENT. PATIENT IS STABLE AT THIS TIME.
--- NOTE | 2017-09-20 18:00 | NUR ---
PATIENT WAS ESCORTED OUT IN WHEELCHAIR BY STAFF. ALL BELONGINGS WERE TAKEN WITH THE PATIENT. PATIENT IS STABLE AT THIS TIME
== END 2017-09-20 18:00 | disposition home or self-care (01) | DRG 227 ==
LOC: MED 19:08 → MTU 09-16 00:30 → MIC 09-17 15:38 → MTU 09-18 16:15
PROVIDERS: ADMIT Family Medicine Sports Medicine; ATTEND Family Medicine Sports Medicine
PROC: 0DBU0ZZ Excision of Omentum, Open Approach (ICD-10-PCS; 2017-09-17)
PROC: 0WUF0JZ Supplement Abdominal Wall with Synthetic Substitute, Open Approach (ICD-10-PCS; principal; 2017-09-17 12:30)
DX: K43.0 Incisional hernia with obstruction, without gangrene (principal); N17.0 Acute kidney failure with tubular necrosis; E44.0 Moderate protein-calorie malnutrition; K56.50 Intestinal adhesions [bands], unspecified as to partial versus complete obstruction; Z68.43 Body mass index [BMI] 50.0-59.9, adult; E11.65 Type 2 diabetes mellitus with hyperglycemia; E87.8 Other disorders of electrolyte and fluid balance, not elsewhere classified; N39.0 Urinary tract infection, site not specified; K42.0 Umbilical hernia with obstruction, without gangrene; K92.89 Other specified diseases of the digestive system; E83.42 Hypomagnesemia; E78.5 Hyperlipidemia, unspecified; J45.909 Unspecified asthma, uncomplicated; K21.9 Gastro-esophageal reflux disease without esophagitis; E78.1 Pure hyperglyceridemia; D50.9 Iron deficiency anemia, unspecified; E66.01 Morbid (severe) obesity due to excess calories; Z90.49 Acquired absence of other specified parts of digestive tract
CPT/HCPCS: 36415; 71045; 74250; 80048; 80053; 81001; 82150; 82948; 83036; 83605; 83690; 83735; 83880; 84100; 84436; 84439; 84443; 84479; 84703; 85025; 85610; 85730; 86886; 86900; 86901; 87040; 87081; 87086; 88302; 93005; 93925; 93970; 96361; 96365; 96375; 97110; 97116; 97140; 97530; 99285; C1781; J0690; J0696; J1170; J1644; J1815; J1885; J2175; J2250; J2270; J2405; J2543; J3010; J3475; J3490; J7030; J7060; J7120; Q0092

== ENCOUNTER 2018-04-19 17:41 | Emergency (ER) | payer MEDICAID ==
[~2018-04-19] VITALS: Ht 167.6 cm; Wt 145.1 kg
[~2018-04-19 17:41] MED LIST: ATOR20TA40 PO; CALC-846 PO; DOCU-299 PO; LACT10CA PO; LEVO750T2 PO
[2018-04-19 17:50] VITALS: BP 137/75
[2018-04-19] MEDS ORDERED: KETOROLAC 60 MG/2 ML VIAL IM ONE (19:55)
[2018-04-19] MEDS ORDERED: methylPREDNISolone SS 125 MG/2 ML VIAL IM ONE (19:55)
[2018-04-19 20:22] VITALS: BP 129/83
== END 2018-04-19 20:22 | disposition home or self-care (01) ==
LOC: MED 17:41
DX: G51.0 Bell's palsy (principal); E11.9 Type 2 diabetes mellitus without complications; K21.9 Gastro-esophageal reflux disease without esophagitis; Z79.899 Other long term (current) drug therapy
CPT/HCPCS: 70450; 82948; 96372; 99284; J1885; J2930; 96375

== ENCOUNTER 2018-07-20 02:35 | Emergency (ER) | payer MEDICAID ==
[~2018-07-20] VITALS: Ht 162.6 cm; Wt 135.2 kg
[~2018-07-20 02:35] MED LIST changes: +CALC-55 PO; -CALC-846 PO
[2018-07-20 02:45] VITALS: BP 147/85
[2018-07-20] MEDS ORDERED: KETOROLAC 30 MG/ML VIAL IVP ONE (02:55)
[2018-07-20] MEDS ORDERED: NACL 0.9% 1,000 ML IV ONE (02:55)
[2018-07-20] MEDS ORDERED: ONDANSETRON 4 MG/2 ML VIAL IVP ONE (02:55)
--- NOTE | 2018-07-20 02:55 | NUR ---
PT BIB C/O FEVER, CHILLS AND H/A X2 HRS. PT STATES SUDDEN ONSET OF CHILLS, AND H/A. PT STATES TO BE TAKING AZO SINCE TUESDAY, PT STATES TO CURRENTLY HAVING DYSURIA. PT STATES 7/10 PRESSURE, PAIN TO BACK OF THE HEAD. +NAUSEA. BS AT BESIDE WAS 191. PT STATES TO TAKE IBUPROFEN AT HOME W/O RELIEF. --LBM: YESTERDAY, AND NORMAL. LUNG SOUNDS CLEAR BL. BOWEL SOUNDS ACTIVE X4 QUAD. DENIES V/D. SKIN WARM, DRY AND INTACT. AAOX4. CLEAR SPEECH. CAP REFIL <3. ASYMETRIC SMILE. MOIST MUCOUS MEMBRANES. --PT IN GOWN IN BED; BED IN LOWER LOCKED POSITION. ER MD MADE AWARE OF PT STATUS. WILL CONTINUE TO MONITOR. SXH: HERNIA REPAIR, CHOLECYSTECTOMY PMH: DM, BELLS PALSEY RX: METFORMIN, GLIPIZIDE
--- NOTE | 2018-07-20 03:09 | NUR ---
PT TO ED WITH C/O FEVER AND CHILLS X 2 HRS. PT REPORTS TAKING MOTRIN AT HOME WITH NO RELIEF. NENO N/V/D. PT PLACED INTO BED, PENDING MD COLEMAN.
[2018-07-20 03:35] LABS: APPEARANCE,URINE CLOUDY (CLEAR); BILIRUBIN,URINE NEGATIVE (NEGATIVE); BLOOD, URINE 2+ (NEGATIVE); COLOR,URINE YELLOW (YELLOW); LEUKOCYTE ESTERASE ,URINE 3+ (NEGATIVE); NITRITE, URINE NEGATIVE (NEGATIVE); UGLUCOSE NEGATIVE (NEGATIVE)
[2018-07-20 03:40] LABS: BASOPHILS % (AUTO) 0.4 % (0.0-2.0); HEMOGLOBIN 9.3 g/dL (12.0-16.0); LYMPHOCYTES # (AUTO) 1.4 K/uL (2.5-16.5); LYMPHOCYTES % (AUTO) 10.9 % (20.5-51.1); MEAN CORPUSCULAR HEMOGLOBIN 18 pg (27-31); MEAN CORPUSCULAR HGB CONC 30 g/dL (33-37); MEAN CORPUSCULAR VOLUME 59.5 fL (80-94); MONOCYTES # (AUTO) 0.8 K/uL (0.8-1.0); MONOCYTES % (AUTO) 6.4 % (1.7-9.3); NEUTROPHILS # (AUTO) 10.6 K/uL (1.8-7.7); NEUTROPHILS % (AUTO) 82.3 % (42.2-75.2); PLATELET COUNT (AUTO) 317 K/uL (140-450); RED BLOOD CELL COUNT(AUTO) 5.19 MIL/uL (4.20-5.40); WHITE BLOOD COUNT (AUTO) 12.8 K/uL (4.8-10.8)
[2018-07-20 03:56] LABS: HEMATOCRIT 27.9 % (36-48)
[2018-07-20 03:58] LABS: ALBUMIN 3.3 g/dL (3.4-5.0); ANION GAP 14.1 (8-16); CARBON DIOXIDE 26.1 mmol/L (21-32); CREATININE 1.1 mg/dL (0.6-1.3); POTASSIUM 4.2 mmol/L (3.5-5.1)
[2018-07-20] MEDS ORDERED: ACETAMINOPHEN EXTRA STRENGTH 500 MG TAB PO ONE (04:10)
[2018-07-20 04:21] LABS: RBC,URINE 11-20 (MOD) /HPF (0-5); WBC,URINE TOO MANY TO COUNT /HPF (0-5)
[2018-07-20] MEDS ORDERED: cefTRIAXone 1,000 MG VIAL ONE (04:45)
--- NOTE | 2018-07-20 04:50 | NUR ---
PT CALLED, WANTED TO KNOW IF PT WAS GOING TO BE ADMITTED OR GOING HOME. UPDATED ON PT STATUS, PER PT CONSENT.
[2018-07-20 05:48] VITALS: BP 110/60
--- NOTE | 2018-07-20 05:48 | NUR ---
Patient discharged with v/s stable. Written and verbal after care instructions given and explained. Patient alert, oriented and verbalized understanding of instructions. Ambulatory with steady gait. All questions addressed prior to discharge. ID band removed. Patient advised to follow up with PMD. Rx of PYRIDIUM, MOTRIN, BACTRIM given. Patient educated on indication of medication including possible reaction and side effects. Opportunity to ask questions provided and answered.
== END 2018-07-20 05:48 | disposition home or self-care (01) ==
LOC: MED 02:35
DX: N39.0 Urinary tract infection, site not specified (principal); E11.9 Type 2 diabetes mellitus without complications; K21.9 Gastro-esophageal reflux disease without esophagitis; E66.01 Morbid (severe) obesity due to excess calories; Z79.899 Other long term (current) drug therapy; Z79.2 Long term (current) use of antibiotics
CPT/HCPCS: 36415; 80053; 81001; 85025; 87040; 87086; 96365; 96375; 99284; J0696; J1885; J2405; J7030; 87186

== ENCOUNTER 2018-07-20 23:22 | Emergency (ER) | payer MEDICAID ==
[~2018-07-20] VITALS: Ht 167.6 cm; Wt 131.1 kg
[2018-07-20 23:30] VITALS: BP 95/50
--- NOTE | 2018-07-20 23:44 | NUR ---
PT WAS TAKEN TO BED #1 BY CHAVEZ. REPORT WAS GIVEN TO MAREN
--- NOTE | 2018-07-20 23:45 | NUR ---
GISSELL ALS TO ER BED 1
--- NOTE | 2018-07-20 23:50 | NUR ---
PT GISSELL BYRNE PER EMS. 43F. CC HEADACHE X 1 DAY WITH NAUSEA. WAS IN ER 07/19/18 FOR UTI. AOX4. FOLLOWS COMMANDS. ABLE TO VERBALIZE NEEDS. HX BELLS PALSY. NKDA. RX METFORMIN GLIPIZIDE. PAIN 10/10 TO HEAD NOTED. DENIES CHEST PAIN. BLOOD SUGAR 192 BED IN LOWEST POSITION. WILL CONTINUE TO MONITOR.
[2018-07-21] MEDS ORDERED: NACL 0.9% 500 ML IV SCH (00:12)
[2018-07-21] MEDS ORDERED: ONDANSETRON 4 MG/2 ML VIAL IVP ONE (00:15)
[2018-07-21] MEDS ORDERED: KETOROLAC 30 MG/ML VIAL IVP ONE (00:15)
[2018-07-21 00:44] LABS: HEMOGLOBIN 8.7 g/dL (12.0-16.0); MEAN CORPUSCULAR HEMOGLOBIN 18 pg (27-31); MEAN CORPUSCULAR HGB CONC 30 g/dL (33-37); MEAN CORPUSCULAR VOLUME 59.2 fL (80-94); PLATELET COUNT (AUTO) 285 K/uL (140-450); RED CELL DISTRIBUTION WIDTH 18.7 % (11.6-13.7); WHITE BLOOD COUNT (AUTO) 14.9 K/uL (4.8-10.8)
--- NOTE | 2018-07-21 00:48 | NUR ---
PT TO CT
[2018-07-21 01:02] LABS: ALBUMIN 2.8 g/dL (3.4-5.0); ANION GAP 10.7 (8-16); CARBON DIOXIDE 27.9 mmol/L (21-32); CREATININE 1.1 mg/dL (0.6-1.3); POTASSIUM 3.6 mmol/L (3.5-5.1); PROTHROMBIN TIME 10.3 secs (10.8-13.4); TOTAL BILIRUBIN 0.9 mg/dL (0.0-1.0)
--- NOTE | 2018-07-21 01:07 | NUR ---
PT BACK FROM CT
[2018-07-21 01:08] LABS: LYMPHOCYTES % (MANUAL) 5 % (20-46); MONOCYTES % (MANUAL) 1 % (5-12)
[2018-07-21 01:33] LABS: APPEARANCE,URINE SL CLOUDY (CLEAR); BILIRUBIN,URINE 1+ (NEGATIVE); BLOOD, URINE 2+ (NEGATIVE); COLOR,URINE ORANGE (YELLOW); LEUKOCYTE ESTERASE ,URINE 2+ (NEGATIVE); NITRITE, URINE POSITIVE (NEGATIVE); PH,URINE 5.5 (5.0-9.0); UGLUCOSE TRACE (NEGATIVE)
[2018-07-21] MEDS ORDERED: PIPERACILLIN/TAZOBACTAM 3.375 GM in DEXTROSE 5% 50 ML IV ONE (01:55)
[2018-07-21 01:58] LABS: RBC,URINE 11-20 (MOD) /HPF (0-5); WBC,URINE TOO MANY TO COUNT /HPF (0-5)
[2018-07-21] MEDS ORDERED: PIPERACILLIN/TAZOBACTAM 3.375 GM VIAL IV ONE (02:10)
--- NOTE | 2018-07-21 02:21 | NUR ---
RECEIVED STEWARTHIN 1G FROM SENIOR PIPING DESIGNER, AZUCENA STILL RUNNING AT THIS TIME.
[2018-07-21] MEDS ORDERED: cefTRIAXone 1,000 MG VIAL ONE (02:26)
--- NOTE | 2018-07-21 02:44 | NUR ---
PT RESTING QUIETLY AT THIS TIME. NO SIGNS OF ACUTE DISTRESS NOTED. WILL CONTINUE TO OBSERVE.
[2018-07-21 03:44] VITALS: BP 95/50
--- NOTE | 2018-07-21 03:45 | NUR ---
Patient discharged with v/s stable. Written and verbal after care instructions given and explained. Patient alert, oriented and verbalized understanding of instructions. Ambulatory with steady gait. All questions addressed prior to discharge. ID band removed. Patient advised to follow up with PMD. Rx of TRAMADOL HYDROCHLORINE given. Patient educated on indication of medication including possible reaction and side effects. Opportunity to ask questions provided and answered.
--- NOTE | 2018-07-24 06:07 | NUR ---
Late entry. COnfirmed with RN that 500 ml 0.9 NS IV completed at 0120.
== END 2018-07-21 03:44 | disposition home or self-care (01) ==
LOC: MED 23:22
DX: N39.0 Urinary tract infection, site not specified (principal); E11.9 Type 2 diabetes mellitus without complications; K21.9 Gastro-esophageal reflux disease without esophagitis; G51.0 Bell's palsy; Z79.2 Long term (current) use of antibiotics
CPT/HCPCS: 36415; 70450; 71045; 80053; 81001; 83605; 83880; 84484; 85025; 85610; 85730; 87040; 93005; 96365; 96368; 96375; 99284; J0696; J1885; J2405; J2543

== ENCOUNTER 2019-01-19 18:31 | Emergency (ER) | payer MEDICAID ==
[~2019-01-19] VITALS: Ht 167.6 cm; Wt 140.6 kg
[2019-01-19 18:57] VITALS: BP 158/90
[2019-01-19 20:00] LABS: APPEARANCE,URINE CLEAR (CLEAR); BILIRUBIN,URINE NEGATIVE (NEGATIVE); BLOOD, URINE 3+ (NEGATIVE); COLOR,URINE YELLOW (YELLOW); LEUKOCYTE ESTERASE ,URINE NEGATIVE (NEGATIVE); NITRITE, URINE NEGATIVE (NEGATIVE); UGLUCOSE 3+ (NEGATIVE)
[2019-01-19 20:01] LABS: BASOPHILS % (AUTO) 0.4 % (0.0-2.0); HEMATOCRIT 34.8 % (36-48); HEMOGLOBIN 10.5 g/dL (12.0-16.0); LYMPHOCYTES # (AUTO) 2.4 K/uL (2.5-16.5); LYMPHOCYTES % (AUTO) 18.9 % (20.5-51.1); MEAN CORPUSCULAR HEMOGLOBIN 19 pg (27-31); MEAN CORPUSCULAR HGB CONC 30 g/dL (33-37); MEAN CORPUSCULAR VOLUME 61.9 fL (80-94); MONOCYTES # (AUTO) 0.6 K/uL (0.8-1.0); MONOCYTES % (AUTO) 4.5 % (1.7-9.3); NEUTROPHILS # (AUTO) 9.6 K/uL (1.8-7.7); NEUTROPHILS % (AUTO) 76.2 % (42.2-75.2); PLATELET COUNT (AUTO) 479 K/uL (140-450); RED BLOOD CELL COUNT(AUTO) 5.61 MIL/uL (4.20-5.40); RED CELL DISTRIBUTION WIDTH 19.9 % (11.6-13.7); WHITE BLOOD COUNT (AUTO) 12.6 K/uL (4.8-10.8)
[2019-01-19 20:07] LABS: RBC,URINE 11-20 (MOD) /HPF (0-5); WBC,URINE 0-5 /HPF (0-5)
[2019-01-19 20:14] LABS: ANION GAP 15.6 (8-16); CARBON DIOXIDE 26.7 mmol/L (21-32); CREATININE 0.9 mg/dL (0.6-1.3); POTASSIUM 4.3 mmol/L (3.5-5.1)
[2019-01-19 20:22] LABS: ALBUMIN 3.6 g/dL (3.4-5.0); TOTAL BILIRUBIN 0.3 mg/dL (0.0-1.0)
[2019-01-19] MEDS ORDERED: DICYCLOMINE HCL LIQUID 20 MG, ALUMINUM HYD/MAG/SIMETHICONE 30 ML, LIDOCAINE VISCOUS 2% ... PO ONE ×3 (21:40)
[2019-01-19 21:56] VITALS: BP 158/90
== END 2019-01-19 21:56 | disposition home or self-care (01) ==
LOC: MED 18:31
DX: R10.13 Epigastric pain (principal); E11.9 Type 2 diabetes mellitus without complications; K21.9 Gastro-esophageal reflux disease without esophagitis; F17.200 Nicotine dependence, unspecified, uncomplicated; Z90.49 Acquired absence of other specified parts of digestive tract; Z98.890 Other specified postprocedural states; Z79.899 Other long term (current) drug therapy
CPT/HCPCS: 36415; 80053; 81001; 81002; 82948; 83690; 85025; 99283

== ENCOUNTER 2019-12-13 19:52 | Emergency (ER) | payer MEDICAID, SELFPAY ==
[~2019-12-13] VITALS: Ht 167.6 cm; Wt 113.4 kg
--- NOTE | 2019-12-13 19:54 | NUR ---
PT TAKEN TO OF TENT
[2019-12-13 20:00] VITALS: BP 157/87
--- NOTE | 2019-12-13 20:44 | NUR ---
Dr. Fuentes examining patient.
--- NOTE | 2019-12-13 21:27 | NUR ---
Patient discharged with v/s stable. Written and verbal after care instructions given and explained. Patient verbalized understanding. Ambulatory with steady gait. All questions addressed prior to discharge. Advised to follow up with PMD.
--- NOTE | 2019-12-13 21:27 | NUR ---
COVID SWAB COLLECTED
== END 2019-12-13 21:27 | disposition home or self-care (01) ==
LOC: EEVIPCON 19:52 → MED 19:52
DX: R05 Cough (principal); Z20.828 Contact with and (suspected) exposure to other viral communicable diseases; E11.9 Type 2 diabetes mellitus without complications; K21.9 Gastro-esophageal reflux disease without esophagitis; G51.0 Bell's palsy; Z79.899 Other long term (current) drug therapy
CPT/HCPCS: 99283; U0003

== ENCOUNTER 2023-12-06 22:51 | Emergency (ER) | payer MEDICAID ==
[~2023-12-06] VITALS: Ht 167.6 cm; Wt 108.9 kg
[~2023-12-06 22:51] MED LIST changes: +CIPR500T4 PO; +OMEP40EC24 PO
[2023-12-06 22:57] VITALS: BP 116/69; PULSE 104; RESP 18; TEMP 98.1; O2SAT 99
[2023-12-07] MEDS ORDERED: CIPR7.5D2 RIGHT EAR (01:37)
[2023-12-07] MEDS ORDERED: AMOX-1230 PO (01:37)
[2023-12-07] MEDS ORDERED: NAPR-337 PO (01:37)
[2023-12-07] MEDS: KETOROLAC 30 MG/ML VIAL IM ONE (01:56)
== END 2023-12-07 02:15 | disposition home or self-care (01) ==
LOC: MED 22:51
DX: H60.91 Unspecified otitis externa, right ear (principal); R21 Rash and other nonspecific skin eruption; L53.9 Erythematous condition, unspecified; E11.9 Type 2 diabetes mellitus without complications; K21.9 Gastro-esophageal reflux disease without esophagitis; Z79.899 Other long term (current) drug therapy
CPT/HCPCS: 96372; 99283; J1885